=== PATIENT | female | born 1965 | race Caucasian/White ===

== ENCOUNTER 2023-08-14 11:16 | Emergency (ER) | payer MEDICARE, MEDICAID, SELFPAY ==
[2023-08-14 11:17] VITALS: BP 140/112; PULSE 122; RESP 18; TEMP 35.9; O2SAT 96; BMI 34.1
--- NOTE | 2023-08-14 11:24 | EDS_ITS ---
<Statement entered by Vivienne Edwards MD - 08/14/23 16:48> I have personally performed a face to face assessment of the patient and have reviewed the GORGE Note. Patient presents secondary to right index finger laceration. She was washing a coffee mug when it broke and patient has a laceration on the base of her right index finger measuring approximate 5 cm in length. She is neurovascularly intact. She is right-hand dominant. Patient sitting upright in bed no acute distress. Right upper extremity examination reveals a laceration on the base of the right index finger. Good strength and sensation distally. Normal cap refill. Wound was repaired with 9 simple interval sutures. Please see PA note for details. Wound care discussed. Patient to follow-up for suture removal. Return instructions provided. HPI History of Present Illness Chief Complaint: Laceration Narrative Narrative: 57-year-old female presents with a laceration to her right index finger. She was washing a glass coffee cup when it broke into large pieces and cut her finger. Bleeding is controlled with gauze. She denies weakness numbness or tingling in the extremity. She is right-hand dominant. Last tetanus unknown. No blood thinners. [facility] Home Medications ?Medication ?Instructions ?Recorded ?Last Taken ?Type atorvastatin 10 mg tablet 10 mg PO DAILY 05/25/15 Unknown History duloxetine 60 mg capsule,delayed 60 mg PO DAILY 05/25/15 Unknown History release estradiol 1 mg tablet 1 mg PO DAILY 05/25/15 Unknown History furosemide 80 mg tablet 80 mg PO DAILY 05/25/15 Unknown History gabapentin 800 mg tablet 800 mg PO TIDCM 05/25/15 Unknown History levothyroxine 125 mcg tablet 250 mcg PO DAILY 05/25/15 Unknown History metformin 500 mg tablet 500 mg PO TIDCM 05/25/15 Unknown History oxycodone-acetaminophen 5 mg-325 1 - 2 tab PO Q6H PRN PRN Pain #12 05/25/15 Unknown Rx mg tablet tabs pregabalin 150 mg capsule (Lyrica) 150 mg PO BID 05/25/15 Unknown History spironolactone 25 mg tablet 25 mg PO DAILY 05/25/15 Unknown History verapamil 180 mg 24 hr 180 mg PO Q12 05/25/15 Unknown History capsule,extended release Ropinirole Hcl [Requip] 2 mg PO QHS 06/28/15 Unknown History albuterol sulfate 90 mcg/actuation 1 - 2 puff inhalation Q4H PRN PRN 06/28/15 Unknown History aerosol inhaler (Ventolin HFA) Shortness of breath alprazolam 0.5 mg tablet 0.5 mg PO TID PRN PRN Anxiety 06/28/15 Unknown History losartan 100 mg tablet 100 mg PO DAILY 06/28/15 Unknown History linezolid 600 mg tablet 600 mg PO Q12H ##14 07/02/15 Unknown Rx levofloxacin 500 mg tablet 500 mg PO DAILY #5 tabs 07/04/15 Unknown Rx Ropinirole Hcl [Requip] 2 mg PO 07/07/15 Unknown History duloxetine 60 mg capsule,delayed 60 mg PO DAILY 07/07/15 Unknown History release estradiol 2 mg tablet (Estrace) 1 mg PO DAILY 07/07/15 Unknown History clindamycin HCl 300 mg capsule 300 mg PO Q6H ##40 06/20/16 Unknown Rx (Cleocin HCl) Allergy/AdvReac Type Severity Reaction Status Date / Time sulfamethoxazole (From Allergy Itching Verified 08/14/23 11:19 Bactrim) trimethoprim (From Bactrim) Allergy Itching Verified 08/14/23 11:19 Social History Smoking Status: Former smoker ROS ROS ED ROS Narrative Neuro: Negative for motor/sensory dysfunction. Skin: Positive for laceration. Musc: Negative for joint pain. EXAM Physical Exam Narrative Exam Narrative: CONST: Patient sitting in no acute distress. EYES: Normal inspection. EXTREMITIES: 5 cm linear laceration right hand over the dorsal index MCP joint that wraps around the finger to the palmar aspect. Slow active bleeding. No evidence of tendon injury. Full range of motion of right wrist MCP PIP and DIP joints. Normal motor and sensory function in median radial and ulnar distributions, 2+ radial pulse and brisk cap refill. NEURO: Alert and answering questions appropriately. PSYCH: Normal affect. Const Vital Signs: 08/14/23 11:17 08/14/23 12:13 Temperature 96.6 F L 98 F Temperature Source Temporal Pulse Rate 122 H 85 Respiratory Rate 18 18 Blood Pressure 140/112 H 148/102 H Blood Pressure Mean 121 117 Pulse Ox 96 98 Oxygen Delivery Method Room Air PROC Procedures Lacerations right index finger: Length: 5 cm Depth: Skin Shape: Linear Prep: Sterile Conditions and Shure-Clens Laceration repair: Irrigated, Lidocaine and Wound explored Irrigated (ml): 100 Number of Sutures/Johnathan: 9 Suture Information: Ethilon and 5-0 MDM MDM MDM Narrative Medical decision making narrative: Patient has a laceration of her right index finger over the MCP area. She has full range of motion and is neurovascularly intact. She was cut by a large piece of glass and there is concern for foreign body and no bony tenderness and no need for x-rays. There is no evidence of tendon injury. Wound was repaired with 9 simple interrupted sutures. Patient given wound care instructions and discharged in stable condition. Discharge Plan Triage Chief Complaint: Laceration ED Midlevel Provider: Ludy Stone ED Provider: Vivienne Edwards Dx/Rx/DC Orders Clinical Impression: Laceration of right hand Instructions: ED Laceration Extremity Prescriptions: No Action metformin 500 MG tablet 500 mg PO TIDCM atorvastatin 10 MG tablet 10 mg PO DAILY spironolactone 25 MG tablet 25 mg PO DAILY verapamil 180 MG capsule 180 mg PO Q12 estradiol 1 MG tablet 1 mg PO DAILY gabapentin 800 MG tablet 800 mg PO TIDCM furosemide 80 MG tablet 80 mg PO DAILY levothyroxine 125 MCG tablet 250 mcg PO DAILY duloxetine 60 MG capsule 60 mg PO DAILY pregabalin [Lyrica] 150 MG capsule 150 mg PO BID oxycodone-acetaminophen 1 TABLET tablet 1 - 2 tab PO Q6H PRN PRN (Reason: Pain) Qty: 12 0RF alprazolam 0.5 MG tablet 0.5 mg PO TID PRN PRN (Reason: Anxiety) albuterol sulfate [Ventolin HFA] 1 INHALER inhaler 1 - 2 puff inhalation Q4H PRN PRN (Reason: Shortness of breath) Ropinirole Hcl [Requip] 2 MG tablet 2 mg PO QHS losartan 100 MG tablet 100 mg PO DAILY linezolid 600 MG tablet 600 mg PO Q12H Qty: 14 0RF estradiol [Estrace] 2 MG tablet 1 mg PO DAILY duloxetine 60 MG capsule 60 mg PO DAILY Ropinirole Hcl [Requip] 2 MG tablet 2 mg PO clindamycin HCl [Cleocin HCl] 300 MG capsule 300 mg PO Q6H Qty: 40 0RF levofloxacin 500 MG tablet 500 mg PO DAILY Qty: 5 0RF Primary Care Provider: Aleksandar Soto Referrals: Aleksandar Soto MD [Primary Care Provider] - Activity Restrictions/Additional Instructions: Gently clean with soap and water. Return to have stitches removed in 7 days. If any signs of infection develop return sooner such as redness, swelling, pus or fever. Print Language: Portuguese Disposition Disposition: Home, Self Care Discharge Date/Time: 08/14/23 12:19
[2023-08-14] MEDS: Lidocaine 1% (20 ml mdv) 20 ML Vial INFILT (12:00)
[2023-08-14] MEDS: Diphth,Pertuss(Acell),Tet Vac 0.5 ML Vial IM (12:01)
[2023-08-14 12:13] VITALS: BP 148/102; PULSE 85; RESP 18; TEMP 36.6; O2SAT 98
== END 2023-08-14 12:19 | disposition home or self-care (01) ==
PROVIDERS: Emergency Provider Emergency Medicine; PCP Internal Medicine; Visit Provider Emergency Medicine
DX: S61.210A Laceration without foreign body of right index finger without damage to nail, initial encounter (principal); Z87.891 Personal history of nicotine dependence; W25.XXXA Contact with sharp glass, initial encounter; Y93.G1 Activity, food preparation and clean up; S61.411A Laceration without foreign body of right hand, initial encounter
CPT/HCPCS: 12002; 90471; 90715; 99283

== ENCOUNTER 2023-11-29 09:19 | Emergency (ER) | payer MEDICARE, MEDICAID, SELFPAY ==
[2023-11-29 09:20] VITALS: BP 157/101; PULSE 60; RESP 16; TEMP 36; O2SAT 100; BMI 34.0
--- NOTE | 2023-11-29 09:31 | ED.RN ---
PT HAD A FALL ABOUT 3 WEEKS AGO. SHE HAS NOT HAD ANY ISSUES UNTIL THAT PAST WEEK. SHE DOES NOT FEEL THEY ARE RELATED. HER PAIN IS DESCRIBED PAIN ON THE LEFT SIDE LOWER BACK/HIP AREA. SHE GETS SHOOTING PAIN DOWN THE BACK OF HER LEG. ONLY LEFT SIDE INVOLVED WITH PAIN.
--- NOTE | 2023-11-29 09:44 | EDS_ITS ---
HPI History of Present Illness Chief Complaint: Back Informant: patient Onset/Context/Timing Onset: Days Context: Gradual Onset Timing: Continuous Quality: Sharp Location: Buttock and Left Leg Current Severity: Moderate Maximum Severity: Moderate Worsened by: improves with Movement Relieved by: Remaining Still Associated Symptoms Associated Symptoms: Radiation to Left Leg; Negative for Fever, Abdominal Pain, Dysuria, Unable to Ambulate, Unable to Transfer, Urinary Retention, Urinary Incontinence, Constipation or Fecal Incontinence Narrative Narrative: 58-year-old diabetic female history of hypertension also. Complaining atraumatic left buttock pain radiating down her left leg. This has been going on for approximately the last week or so. She had a trip and fall about a month ago but said she was not having pain about a week ago. Denies any weakness or numbness. No prior history of back problems or back surgery. Prior similar symptoms: No Recent Illness/Hospitalization: No [facility] Medical History Diabetes Home Medications ?Medication ?Instructions ?Recorded ?Last Taken ?Type atorvastatin 10 mg tablet 10 mg PO DAILY 05/25/15 Unknown History duloxetine 60 mg capsule,delayed 60 mg PO DAILY 05/25/15 Unknown History release estradiol 1 mg tablet 1 mg PO DAILY 05/25/15 Unknown History furosemide 80 mg tablet 80 mg PO DAILY 05/25/15 Unknown History gabapentin 800 mg tablet 800 mg PO TIDCM 05/25/15 Unknown History levothyroxine 125 mcg tablet 250 mcg PO DAILY 05/25/15 Unknown History metformin 500 mg tablet 500 mg PO TIDCM 05/25/15 Unknown History oxycodone-acetaminophen 5 mg-325 1 - 2 tab PO Q6H PRN PRN Pain #12 05/25/15 Unknown Rx mg tablet tabs pregabalin 150 mg capsule (Lyrica) 150 mg PO BID 05/25/15 Unknown History spironolactone 25 mg tablet 25 mg PO DAILY 05/25/15 Unknown History verapamil 180 mg 24 hr 180 mg PO Q12 05/25/15 Unknown History capsule,extended release Ropinirole Hcl [Requip] 2 mg PO QHS 06/28/15 Unknown History albuterol sulfate 90 mcg/actuation 1 - 2 puff inhalation Q4H PRN PRN 06/28/15 Unknown History aerosol inhaler (Ventolin HFA) Shortness of breath alprazolam 0.5 mg tablet 0.5 mg PO TID PRN PRN Anxiety 06/28/15 Unknown History losartan 100 mg tablet 100 mg PO DAILY 06/28/15 Unknown History linezolid 600 mg tablet 600 mg PO Q12H ##14 07/02/15 Unknown Rx levofloxacin 500 mg tablet 500 mg PO DAILY #5 tabs 07/04/15 Unknown Rx Ropinirole Hcl [Requip] 2 mg PO 07/07/15 Unknown History duloxetine 60 mg capsule,delayed 60 mg PO DAILY 07/07/15 Unknown History release estradiol 2 mg tablet (Estrace) 1 mg PO DAILY 07/07/15 Unknown History clindamycin HCl 300 mg capsule 300 mg PO Q6H ##40 06/20/16 Unknown Rx (Cleocin HCl) prednisone 20 mg tablet 40 mg (2 x 20 mg) PO DAILY 11/29/23 Unknown Rx sciatica 7 days #14 tabs Allergy/AdvReac Type Severity Reaction Status Date / Time sulfamethoxazole (From Allergy Itching Verified 11/29/23 09:32 Bactrim) trimethoprim (From Bactrim) Allergy Itching Verified 11/29/23 09:32 Social History Smoking Status: Former smoker ROS ROS ED Constitutional Constitutional ED: Denies chills or fever(s) Eyes Eyes: Denies blurry vision ENT ENT ED: Denies ear pain Cardiovascular Cardiovascular: Denies chest pain Respiratory/Chest Respiratory/Chest: Denies dyspnea Gastrointestinal Gastrointestinal: Denies abdominal pain Genitourinary Genitourinary ED: Denies dysuria or hematuria Musculoskeletal Musculoskeletal: Denies arthralgias Integumentary Denies abscess Neurologic Neurologic: Denies headache(s) Psychiatric Psychiatric: Denies anxiety Endocrine Endocrinology: Denies cold intolerance Hematologic/Lymphatic Hematologic/Lymphatic: Denies easy bleeding Allergic/Immunologic Allergic/Immunologic ED: Denies mouth swelling EXAM Physical Exam Narrative Exam Narrative: 58-year-old female sitting upright in bed. Vital signs are stable. Afebrile. No distress. H EENT exam unremarkable. Lungs clear. Heart regular rate and rhythm rate about 60 no murmur. Abdomen soft nontender. Moving all 4 extremities. Neurovascularly intact. 5 out of 5 marriage counselor strength. Dorsi plant arflexion intact. Positive straight leg raise on the left but has full range of motion. Normal dorsi plantarflexion bilaterally. 5 out of 5 strength. Normal sensation. No cauda equina. Back and lumbar spine nontender. No signs of trauma or bruising. No redness or warmth. Left SI joint tender to palpation. Consistent with acute left sciatica. Neurologically she is awake and alert no focal motor or sensory deficits. Const Vital Signs: 11/29/23 09:20 Temperature 96.8 F L Temperature Source Temporal Pulse Rate 60 Respiratory Rate 16 Blood Pressure 157/101 H Blood Pressure Mean 119 Pulse Ox 100 Oxygen Delivery Method Room Air Positive well nourished and well developed; Negative for cachectic, contractures or unkempt General Appearance ED: well developed and NAD; Negative for unkempt, cachectic, contractures or pallor Nutritional Appearance: Negative for cachectic HEENT Reports moist mucous membranes Negative for trauma or tenderness Eyes PERRL and EOMs intact bilaterally General Eye ED: Negative for pale conjunctiva, scleral icterus or other Neck no lymphadenopathy, supple and no JVD General: Negative for tenderness Thyroid: Negative for other Chest Wall Chest: Negative for other Resp clear to auscultation bilaterally Auscultation: Negative for rales, rhonchi, wheezes or diminished lung sounds Cardio regular rate, regular rhythm, S1 normal heart sound, S2 normal heart sound and no murmurs Palpation: Negative for palpable S3 Rate: Negative for bradycardia or tachycardic Rhythm: Negative for abnormal rhythm Bruits: Negative for other GI normal to inspection, nondistended, normoactive bowel sounds, soft to palpation, non-tender, non-distended and no masses Palpation: Negative for tender, guarding, pulsatile mass or rebound tenderness present Back/Spine normal to inspection and no thoracic nor lumbar tenderness General Back: Negative for CVA tenderness Cervical Spine: Negative for cervical spine tenderness Thoracic Spine / Upper Back: Negative for paraspinal muscle tenderness Extremity normal to inspection and no clubbing, cyanosis or edema General Extremety ED: Negative for edema or tenderness General Extremity: Negative for edema Neuro oriented x3 and no sensory deficits noted Sensorium / Orientation: alert; Negative for confused, lethargic or stuporous Motor Exam: strength 5/5 throughout Psych mental status grossly normal Appearance: Negative for unkempt Attitude: No agitated Mood & Affect: Negative for depressed, sad or tearful Skin no rashes or lesions noted and no wounds General Skin Exam: Negative for jaundice or pallor Lesions: No lesion noted Rashes: No rashes noted Trauma: Negative for abrasion or puncture MDM MDM MDM Narrative Medical decision making narrative: 58-year-old female left sciatica. We discussed treatment options. She has been using ibuprofen with only limited improvement. She be placed on prednisone 40 minutes a day for 1 week. Ice to the area. Follow-up if not improving. She was instructed to watch her blood sugars which have been running well around the 100. Discharge Plan Triage Chief Complaint: Back Other Complaint: Lower Extremity Injury ED Provider: Bashir Sahni Dx/Rx/DC Orders Clinical Impression: Sciatica, History of diabetes mellitus Instructions: ED Sciatica Prescriptions: New prednisone 20 mg tablet 40 mg PO DAILY 7 Days Qty: 14 0RF No Action metformin 500 MG tablet 500 mg PO TIDCM atorvastatin 10 MG tablet 10 mg PO DAILY spironolactone 25 MG tablet 25 mg PO DAILY verapamil 180 MG capsule 180 mg PO Q12 estradiol 1 MG tablet 1 mg PO DAILY gabapentin 800 MG tablet 800 mg PO TIDCM furosemide 80 MG tablet 80 mg PO DAILY levothyroxine 125 MCG tablet 250 mcg PO DAILY duloxetine 60 MG capsule 60 mg PO DAILY pregabalin [Lyrica] 150 MG capsule 150 mg PO BID oxycodone-acetaminophen 1 TABLET tablet 1 - 2 tab PO Q6H PRN PRN (Reason: Pain) Qty: 12 0RF alprazolam 0.5 MG tablet 0.5 mg PO TID PRN PRN (Reason: Anxiety) albuterol sulfate [Ventolin HFA] 1 INHALER inhaler 1 - 2 puff inhalation Q4H PRN PRN (Reason: Shortness of breath) Ropinirole Hcl [Requip] 2 MG tablet 2 mg PO QHS losartan 100 MG tablet 100 mg PO DAILY linezolid 600 MG tablet 600 mg PO Q12H Qty: 14 0RF estradiol [Estrace] 2 MG tablet 1 mg PO DAILY duloxetine 60 MG capsule 60 mg PO DAILY Ropinirole Hcl [Requip] 2 MG tablet 2 mg PO clindamycin HCl [Cleocin HCl] 300 MG capsule 300 mg PO Q6H Qty: 40 0RF levofloxacin 500 MG tablet 500 mg PO DAILY Qty: 5 0RF Primary Care Provider: Aleksandar Soto Referrals: Aleksandar Soto MD [Primary Care Provider] - 1 Week if not improving Activity Restrictions/Additional Instructions: Clinically treated as left-sided sciatica. Prednisone daily. Watch as may increase your blood sugars. Follow-up with your doctor if not improving or return if a lot worse. May use your home pain medications as needed. Ice to the affected area. Print Language: St Helenian Disposition Disposition: Home, Self Care
[2023-11-29] MEDS: predniSONE 20 MG Tablet 60 MG PO (09:45)
[2023-11-29 09:47] VITALS: BP 160/95; PULSE 74; RESP 16; TEMP 36.4; O2SAT 97
== END 2023-11-29 09:52 | disposition home or self-care (01) ==
LOC: ED 09:45
PROVIDERS: Emergency Provider Emergency Medicine; PCP Internal Medicine; Visit Provider Emergency Medicine
DX: M54.32 Sciatica, left side (principal); E11.9 Type 2 diabetes mellitus without complications; I10 Essential (primary) hypertension; Z87.891 Personal history of nicotine dependence; Z79.84 Long term (current) use of oral hypoglycemic drugs
CPT/HCPCS: 99283

== ENCOUNTER 2024-05-05 08:28 | Emergency (ER) | payer MEDICARE, SELFPAY ==
[2024-05-05 08:29] VITALS: BP 134/90; PULSE 71; RESP 16; TEMP 36.4; O2SAT 99
--- NOTE | 2024-05-05 08:34 | ED.VIS.LOWEX ---
HPI History of Present Illness HPI Narrative: Patient presents with left knee injury that occurred yesterday. Patient states she fell and landed directly on her left knee. Patient states her knee was hyperflexed when she fell. Patient states her pain is worse with any weightbearing or movement. Patient denies any paresthesias or weakness. Patient states she has had total knee replacement of both knees. Patient also noted some swelling over the lateral aspect of her left lower leg. Patient denies any paresthesias or weakness. Chief Complaint: Lower Extremity Injury Informant: patient Occured/Mechanism Mechanism/Context: Yes fall Onset/Context/Timing Onset: Yesterday Context: Sudden Onset Timing: Continuous Quality of Pain: Dull Location: Left knee Worsened by: Weightbearing, movement Relieved by: Nothing Associated Symptoms Associated Symptoms: Negative for Parasthesia, Weakness or Loss of Funtion [facility] Medical History (Updated 05/05/24 @ 11:[address] Rolando Olivares, DO) Diabetes Home Medications ?Medication ?Instructions ?Recorded ?Last Taken ?Type atorvastatin 10 mg tablet 10 mg PO DAILY 05/25/15 Unknown History duloxetine 60 mg capsule,delayed 60 mg PO DAILY 05/25/15 Unknown History release estradiol 1 mg tablet 1 mg PO DAILY 05/25/15 Unknown History furosemide 80 mg tablet 80 mg PO DAILY 05/25/15 Unknown History gabapentin 800 mg tablet 800 mg PO TIDCM 05/25/15 Unknown History levothyroxine 125 mcg tablet 250 mcg PO DAILY 05/25/15 Unknown History metformin 500 mg tablet 500 mg PO TIDCM 05/25/15 Unknown History oxycodone-acetaminophen 5 mg-325 1 - 2 tab PO Q6H PRN PRN Pain #12 05/25/15 Unknown Rx mg tablet tabs pregabalin 150 mg capsule (Lyrica) 150 mg PO BID 05/25/15 Unknown History spironolactone 25 mg tablet 25 mg PO DAILY 05/25/15 Unknown History verapamil 180 mg 24 hr 180 mg PO Q12 05/25/15 Unknown History capsule,extended release Ropinirole Hcl [Requip] 2 mg PO QHS 06/28/15 Unknown History albuterol sulfate 90 mcg/actuation 1 - 2 puff inhalation Q4H PRN PRN 06/28/15 Unknown History aerosol inhaler (Ventolin HFA) Shortness of breath alprazolam 0.5 mg tablet 0.5 mg PO TID PRN PRN Anxiety 06/28/15 Unknown History losartan 100 mg tablet 100 mg PO DAILY 06/28/15 Unknown History linezolid 600 mg tablet 600 mg PO Q12H ##14 07/02/15 Unknown Rx levofloxacin 500 mg tablet 500 mg PO DAILY #5 tabs 07/04/15 Unknown Rx Ropinirole Hcl [Requip] 2 mg PO 07/07/15 Unknown History duloxetine 60 mg capsule,delayed 60 mg PO DAILY 07/07/15 Unknown History release estradiol 2 mg tablet (Estrace) 1 mg PO DAILY 07/07/15 Unknown History clindamycin HCl 300 mg capsule 300 mg PO Q6H ##40 06/20/16 Unknown Rx (Cleocin HCl) prednisone 20 mg tablet 40 mg (2 x 20 mg) PO DAILY 11/29/23 Unknown Rx sciatica 7 days #14 tabs Allergy/AdvReac Type Severity Reaction Status Date / Time Penicillins (PCN) Allergy Severe Angioedema Verified 05/05/24 08:28 sulfamethoxazole (From Allergy Itching Verified 05/05/24 08:28 Bactrim) trimethoprim (From Bactrim) Allergy Itching Verified 05/05/24 08:28 Surgical History (Updated 05/05/24 @ 09:[address] Rolando Olivares DO) Hx of total shoulder replacement History of total right knee replacement (TKR) History of total left knee replacement (TKR) Social History Smoking Status: Former smoker ROS ROS ED Constitutional Constitutional ED: Denies chills or fever(s) Eyes Eyes: Denies blurry vision or change in vision ENT ENT ED: Denies rhinorrhea or sore throat Cardiovascular Cardiovascular: Denies chest pain or palpitations Respiratory/Chest Respiratory/Chest: Denies cough or dyspnea Gastrointestinal Gastrointestinal: Denies nausea or vomiting Genitourinary Genitourinary ED: Denies dysuria or hematuria Musculoskeletal Musculoskeletal: Denies back pain or neck pain Integumentary Denies abscess or rash Neurologic Neurologic: Denies headache(s) or weakness Allergic/Immunologic Allergic/Immunologic ED: Denies mouth swelling or urticaria EXAM Physical Exam Const Vital Signs: 05/05/24 08:29 Temperature 97.6 F L Temperature Source Temporal Pulse Rate 71 Respiratory Rate 16 Blood Pressure 134/90 H Blood Pressure Mean 104 Pulse Ox 99 Oxygen Delivery Method Room Air Positive well nourished and well developed General Appearance ED: well developed and NAD Neck full ROM and supple Extremity Extremity Narrative: There is tenderness and edema over the left knee. There is no obvious deformity noted. Range of motion was limited in all motions of the left knee secondary to pain. Strength is 5/5 bilaterally in the lower extremities. There are no sensory deficits noted. Pedal pulses are bilateral. There is some mild tenderness over the lateral aspect of the left lower calf. There is no erythema or warmth noted. There is no pain with plantarflexion and dorsiflexion of the ankle. Neuro oriented x3, CN's II-XII intact bilaterally, moves all extremities and no sensory deficits noted Sensorium / Orientation: alert Motor Exam: strength 5/5 throughout Psych mental status grossly normal MDM MDM MDM Narrative Medical decision making narrative: Differential diagnosis includes knee fracture, contusion, and DVT. X-rays of the left knee will be obtained to assess for fracture. Venous duplex of the left lower extremity will be obtained to assess for DVT. Radiography Diagnostic Testing: Clinical Impression(s) from Imaging Studies Knee X-Ray 05/05/24 09:25 IMPRESSION: Negative for acute fracture or dislocation. Intact left total knee prosthesis. Small joint effusion. Mild heterotopic ossification along the inferior and lateral patella. Reading Location: [facility] X-rays of the left knee were obtained. There are 4 views. On my independent interpretation, there is no acute fracture or dislocation noted. There is a small joint effusion. Radiologist also interpreted the x-rays and agrees. Venous duplex of the left lower extremity was obtained. There is no evidence of DVT. Treatment and Re-Evaluation Narrative: Patient was advised of her findings. Patient was instructed to ice and elevate her left knee. Patient was instructed to take Tylenol or ibuprofen as needed for pain. Patient was instructed to follow-up with her primary care physician in 5 to 7 days. Patient understood and was agreeable with the plan. All questions were answered. Discharge Plan Triage Chief Complaint: Lower Extremity Injury ED Provider: Rolando Olivares Dx/Rx/DC Orders Clinical Impression: Left knee sprain, Fall Instructions: ED Knee Pain of Uncertain Cause, ED Knee Sprain Prescriptions: No Action metformin 500 MG tablet 500 mg PO TIDCM atorvastatin 10 MG tablet 10 mg PO DAILY spironolactone 25 MG tablet 25 mg PO DAILY verapamil 180 MG capsule 180 mg PO Q12 estradiol 1 MG tablet 1 mg PO DAILY gabapentin 800 MG tablet 800 mg PO TIDCM furosemide 80 MG tablet 80 mg PO DAILY levothyroxine 125 MCG tablet 250 mcg PO DAILY duloxetine 60 MG capsule 60 mg PO DAILY pregabalin [Lyrica] 150 MG capsule 150 mg PO BID oxycodone-acetaminophen 1 TABLET tablet 1 - 2 tab PO Q6H PRN PRN (Reason: Pain) Qty: 12 0RF alprazolam 0.5 MG tablet 0.5 mg PO TID PRN PRN (Reason: Anxiety) albuterol sulfate [Ventolin HFA] 1 INHALER inhaler 1 - 2 puff inhalation Q4H PRN PRN (Reason: Shortness of breath) Ropinirole Hcl [Requip] 2 MG tablet 2 mg PO QHS losartan 100 MG tablet 100 mg PO DAILY linezolid 600 MG tablet 600 mg PO Q12H Qty: 14 0RF estradiol [Estrace] 2 MG tablet 1 mg PO DAILY duloxetine 60 MG capsule 60 mg PO DAILY Ropinirole Hcl [Requip] 2 MG tablet 2 mg PO clindamycin HCl [Cleocin HCl] 300 MG capsule 300 mg PO Q6H Qty: 40 0RF prednisone 20 mg tablet 40 mg PO DAILY 7 Days Qty: 14 0RF levofloxacin 500 MG tablet 500 mg PO DAILY Qty: 5 0RF Primary Care Provider: Aleksandar Soto Referrals: Aleksandar Soto MD [Primary Care Provider] - 5-7 Days Print Language: Slovenian Disposition Disposition: Home, Self Care
[2024-05-05 08:39] VITALS: BMI 35.2
--- NOTE | 2024-05-05 09:12 | VDLE_ITS ---
Reason For Study Reason For Study: LLE Pain RIGHT LEFT CFV is compressible, spontaneous, phasic, competent GSV is normal. and demonstrates normal augmentation. CFV is compressible, spontaneous, phasic, competent, Procedure and demonstrates normal augmentation. This is a venous duplex using B-mode, color flow and FV is compressible, spontaneous, phasic, competent spectral Doppler. and demonstrates normal augmentation. Exam performed portable in ED. POP V is compressible, spontaneous, phasic, competent The exam was diagnostic. and demonstrates normal augmentation. A preliminary report was called and/or faxed to [facility] Trunk is compressible. Elise. PTV is compressible. LT PerV is compressible. VL/Venous Duplex US, Unilateral Interpretation Summary Deep veins of the left lower extremity are patent and compressible segmentally. There is no evidence of left lower extremity deep vein thrombosis. Valvular competence appears intact within the p roximal deep venous system on the left . The left great saphenous vein appears patent and compressible segmentally. The right common femoral vein is patent and compressible . Ordering Physician: Rolando Olivares Referring Physician: Aleksandar Soto M.D. Performed By: Hammad Santana RVT
--- NOTE | 2024-05-05 09:25 | RAD_ITS ---
PROCEDURE: Left knee radiographs REASON FOR EXAM: INJURY/PAIN TECHNIQUE: 4 view(s) of the left knee COMPARISON: None. FINDINGS: See impression RAD/Knee 4 or More Views IMPRESSION: Negative for acute fracture or dislocation. Intact left total knee prosthesis. Small joint effusion. Mild heterotopic ossification along the inferior and lateral patella. Reading Location: [facility]
[2024-05-05 11:53] VITALS: BP 139/88; PULSE 81; RESP 18; TEMP 36.6; O2SAT 94
== END 2024-05-05 12:00 | disposition home or self-care (01) ==
PROVIDERS: Emergency Provider Emergency Medicine; PCP Internal Medicine; Visit Provider Emergency Medicine
DX: S83.92XA Sprain of unspecified site of left knee, initial encounter (principal); E11.9 Type 2 diabetes mellitus without complications; W19.XXXA Unspecified fall, initial encounter; Z87.891 Personal history of nicotine dependence; Z96.653 Presence of artificial knee joint, bilateral; Z79.84 Long term (current) use of oral hypoglycemic drugs; M79.89 Other specified soft tissue disorders; Z96.619 Presence of unspecified artificial shoulder joint
CPT/HCPCS: 73564; 93971; 99282

== ENCOUNTER 2024-07-02 05:26 | Emergency (ER) | payer MEDICARE, SELFPAY ==
[2024-07-02] VITALS (7 sets, daily range): BP systolic 105–158; BP diastolic 58–119; PULSE 67–111; RESP 10–22; TEMP 37.3; O2SAT 96–100; BMI 37.3
--- NOTE | 2024-07-02 05:39 | CT_ITS ---
PROCEDURE: ABDOMEN/PELVIS W IV CONT ONLY 07/02/2024 REASON FOR EXAM: LEFT FLANK PAIN S/P KIDNEY SURGERY FOR STONE TECHNIQUE: Abdomen and pelvis CT with intravenous contrast. Coronal and Sagittal reconstruction series were provided. PATIENT PREPARATION: Per protocol ORAL CONTRAST TYPE: None. CONTRAST: 100 cc Isovue 370 IV One or more dose reduction techniques were used (e.g., Automated exposure control, adjustment of the mA and/or kV according to patient size, use of iterative reconstruction technique. RADIATION DOSE SUMMARY: CTDlvol: 23.92 mGy DLP: 1248.22 mGycm COMPARISON: None available FINDINGS: The lung bases are clear. The liver, adrenal glands, right kidney, pancreas and spleen appear within limits. Single partially calcified gallstone nondistended, noninflamed appearing gallbladder. The left double-J ureteral stent is dislodged with the proximal portion of the stent in the distal left ureter just upstream to the ureterovesical junction and the stent looping within the bladder. A punctate distal left ureteral stone is noted. There is moderate left hydroureteronephrosis with slight delay of the left renal nephrogram. The collecting system contains mildly high density material which is unclear if this is hemorrhage or purulent. Left perinephric stranding with a small amount of fluid along the lower pole which may represent forniceal rupture or possible hemorrhage. There is a left retroperitoneal collection adjacent to the psoas muscle which measures 5.1 x 9.6 x 11.4 cm and may represent possible hemorrhage. No subcutaneous soft tissue flank collection or air. Abdominal aorta appears within limits. Aortoiliac atherosclerotic calcification noted. Incidental note of a retroaortic left renal vein which appears to contain contrast. No bowel dilation or free air. Moderate to large amount of proximal colonic fecal material without wall thickening or pericolonic inflammatory change. Normal caliber appendix without secondary signs. Fecalized material within the nondilated distal small bowel can be seen with slow, delayed bowel transit. The adnexa and uterus appear within limits. Trace right pelvic free fluid. Mild anterolisthesis L4 on L5 with spondylosis, degenerative hypertrophic facet changes with apparent severe appearing trefoil central canal narrowing and bilateral foraminal narrowing, [id number]. CT/Abdomen/Pelvis W IV Cont ONLY IMPRESSION: The left double-J ureteral stent is dislodged with the proximal portion of the stent in the distal left ureter just upstream to the ureterovesical junction and the stent looping within the bladder. A punctat e distal left ureteral stone is noted. There is moderate left hydroureteronephrosis with slight delay of the left apurva l nephrogram. The collecting system contains mildly high density material which is unclear if this is hemorrhage or purulent . Left perinephric stranding with a small amount of fluid along the lower pole wh ich may represent forniceal rupture or possible hemorrhage. There is a left retroperitoneal collection adjacent to the psoas muscle which m easures 5.1 x 9.6 x 11.4 cm and may represent possible hemorrhage. Single partially calcified gallstone nondistended, noninflamed appearing gallbl adder. Findings discussed by myself by phone with Dr. Sahni at 6:55 a.m. 07/02/2024 Reading Location: [id number]
--- NOTE | 2024-07-02 05:42 | ED.VIS.GI ---
HPI HPI - GI History of Present Illness Chief Complaint: Abd Pain Informant: patient and spouse/S.O. Abdominal Pain/Flank Pain Onset: Today Context: Gradual Onset Timing: Continuous Quality: Sharp and Stabbing Location: LLQ and Left Flank Current Severity: Severe Maximum Severity: Severe Worsened by: Nothing Relieved by: Nothing Nausea/Vomiting/Emesis GI Symptom: Negative for Nausea or Vomiting Diarrhea/Melena/Hematochezia GI Symptom: Negative for Diarrhea, Melena or Hematochezia Associated Symptoms Associated Symptoms: Positive for Hematuria; Negative for Dysuria or Frequency Narrative Narrative: 58-year-old female history of A-fib on Eliquis, diabetes recently had surgery for a kidney stone in her left kidney at [facility] about 10 days ago on a Tuesday. Patient states she was doing well. She has noticed recent hematuria and started having left lower quadrant abdominal pain at 12 AM this morning. States the pain is severe. Denies any fever or dysuria. She is having some mild gross hematuria. Prior similar symptoms: No Recent Illness/Hospitalization: No PFSH PFS Medical History Diabetes Home Medications ?Medication ?Instructions ?Recorded ?Last Taken ?Type atorvastatin 10 mg tablet 10 mg PO DAILY 05/25/15 Unknown History duloxetine 60 mg capsule,delayed 60 mg PO BID 05/25/15 Unknown History release furosemide 80 mg tablet 80 mg PO DAILY 05/25/15 Unknown History gabapentin 800 mg tablet 800 mg PO TIDCM 05/25/15 Unknown History levothyroxine 125 mcg tablet 250 mcg PO DAILY 05/25/15 Unknown History metformin 500 mg tablet 500 mg PO TIDCM 05/25/15 Unknown History oxycodone-acetaminophen 5 mg-325 1 - 2 tab PO Q6H PRN PRN Pain #12 05/25/15 Unknown Rx mg tablet tabs pregabalin 150 mg capsule (Lyrica) 150 mg PO BID 05/25/15 Unknown History spironolactone 25 mg tablet 25 mg PO DAILY 05/25/15 Unknown History verapamil 180 mg 24 hr 180 mg PO Q12 05/25/15 Unknown History capsule,extended release Ropinirole Hcl [Requip] 2 mg PO QHS 06/28/15 Unknown History albuterol sulfate 90 mcg/actuation 1 - 2 puff inhalation Q4H PRN PRN 06/28/15 Unknown History aerosol inhaler (Ventolin HFA) Shortness of breath alprazolam 0.5 mg tablet 0.5 mg PO TID PRN PRN Anxiety 06/28/15 Unknown History losartan 100 mg tablet 100 mg PO DAILY 06/28/15 Unknown History linezolid 600 mg tablet 600 mg PO Q12H ##14 07/02/15 Unknown Rx levofloxacin 500 mg tablet 500 mg PO DAILY #5 tabs 07/04/15 Unknown Rx Ropinirole Hcl [Requip] 2 mg PO 07/07/15 Unknown History prednisone 20 mg tablet 40 mg (2 x 20 mg) PO DAILY 11/29/23 Unknown Rx sciatica 7 days #14 tabs Allergy/AdvReac Type Severity Reaction Status Date / Time Penicillins (PCN) Allergy Severe Angioedema Verified 07/02/24 05:32 sulfamethoxazole (From Allergy Itching Verified 07/02/24 05:32 Bactrim) trimethoprim (From Bactrim) Allergy Itching Verified 07/02/24 05:32 Surgical History Hx of total shoulder 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 Constitutional Constitutional ED: Denies chills or fever(s) ENT ENT ED: Denies ear pain Cardiovascular Cardiovascular: Denies chest pain Respiratory/Chest Respiratory/Chest: Denies cough or dyspnea Gastrointestinal Gastrointestinal: Reports abdominal pain; Denies diarrhea, nausea or vomiting Genitourinary Genitourinary ED: Reports hematuria; Denies dysuria or urinary frequency Musculoskeletal Musculoskeletal: Denies arthralgias Integumentary Denies abscess Neurologic Neurologic: Denies headache(s) Psychiatric Psychiatric: Denies anxiety Endocrine Endocrinology: Denies polydipsia Hematologic/Lymphatic Hematologic/Lymphatic: Denies easy bleeding Allergic/Immunologic Allergic/Immunologic ED: Denies mouth swelling, tongue swelling or urticaria EXAM Physical Exam Narrative Exam Narrative: 58-year-old female complaining left flank pain. Vital signs are stable blood pressure elevated 150/119 most likely secondary to pain. Otherwise no acute distress. at bedside. H EENT exam pupils round react to light. Mytrex membranes. Neck nontender. Lungs clear to auscultation bilaterally. Heart regular rhythm no murmur. Abdomen is soft, nontender, nondistended normal bowel sounds without peritoneal signs. No hernia or mass. No reproducible pain. She points her left lower quadrant but there is no reproducible pain. No hernia or mass. No distention. Back she has a small 1 inch incision on her back. On the left flank. Some mild bruising around it. No redness. No warmth. No discharge. No tenderness. Moving all 4 extremities. Nontender no edema. Neurologically she is awake alert. Answer questions following commands. Const Vital Signs: 07/02/24 05:27 07/02/24 05:29 07/02/24 07:27 Temperature 99.1 F 99.1 F Temperature Source Oral Oral Pulse Rate 95 111 H 77 Respiratory Rate 17 22 H 12 Blood Pressure 158/119 H 158/119 H 121/77 H Blood Pressure Mean 132 132 91 Pulse Ox 100 99 99 Oxygen Delivery Method Room Air Room Air Room Air Positive well nourished and well developed; Negative for cachectic, contractures or unkempt General Appearance ED: well developed and NAD; Negative for unkempt, cachectic, contractures or pallor Nutritional Appearance: Negative for cachectic HEENT Reports moist mucous membranes normocephalic and atraumatic Eyes PERRL and EOMs intact bilaterally General Eye ED: Negative for pale conjunctiva or scleral icterus Neck no lymphadenopathy, supple and no JVD Resp normal respiratory effort and clear to auscultation bilaterally Cardio regular rate, regular rhythm, S1 normal heart sound, S2 normal heart sound and no murmurs GI non-tender, non-distended and no masses Inspection: Negative for abdominal distention Auscultation: normoactive bowel sounds Palpation: Negative for tender, guarding, hernia, mass, pulsatile mass or rebound tenderness present Back/Spine no CVA tenderness Back/Spine Narrative: Left flank 1 and surgical incision. Mild bruising. No redness or warmth or discharge. General Back: Negative for CVA tenderness Cervical Spine: Negative for cervical spine tenderness Thoracic Spine / Upper Back: Negative for thoracic spinal tenderness Lumbar Spine / Lower Back: Negative for lumbar spinal tenderness Extremity full ROM General Extremety ED: Negative for edema or tenderness General Extremity: Negative for edema Neuro CN's II-XII intact bilaterally and moves all extremities Sensorium / Orientation: alert, oriented to person, oriented to place and oriented to time; Negative for orientation impaired, confused, lethargic or stuporous Motor Exam: strength 5/5 throughout Psych mental status grossly normal and thought process normal Appearance: Negative for unkempt Attitude: No agitated Mood & Affect: Negative for depressed, anxious or tearful Skin no wounds General Skin Exam: Negative for jaundice or pallor Lesions: no lesions Rashes: no rashes Trauma: Negative for abrasion Nails: Negative for discolored MDM MDM MDM Narrative Medical decision making narrative: 58-year-old female status post kidney stone resection done open procedure to her left flank at the [facility] in [place]. Recurrent pain and hematuria. CAT scan being obtained. Fentanyl for pain Zofran for nausea. Screening labs and UA. Differential would include a recurrent stone. UTI, ... Repeat exam patient doing well at 6:02 AM. Pain much better after IV fentanyl. Awaiting CAT scan labs. I spoke to a urologist in the [place] covering for the patient's urologist. He felt that it was in her best interest to be transferred to [facility]. We have them on page awaiting callback. Patient has been checked out to the a.m. physician to handle the transfer. Currently she is resting comfortably. Has not required any additional pain medication. She knows the current plan. History & Record Review Discussion w/independent historian: Patient and Family Additional record(s) reviewed:: No prior records Lab Data Attestation: I reviewed the patient's lab results. Lab results narrative: CBC shows a white count of 16.1. H&H 9.6 and 29. Platelets 345. Chemistry shows sodium 134. Gap 13. Normal BUN of 15 creatinine 1. Glucose 157. CAT scan of the abdomen and pelvis shows the left ureter stent has migrated out of place and the vast majority of its in the bladder. The ureter is dilated. And there is a fluid collection outside the system consistent with bleeding. Urinalysis showed 250 occult blood. No nitrates. Greater 100 red cells. No white cells nor bacteria. Labs: Laboratory Results - last 24 hr 07/02/24 07/02/24 05:35 07:06 WBC 16.1 H RBC 2.88 L Hgb 9.6 L Hct 29.0 L MCV 100.7 H MCH 33.3 H MCHC 33.1 RDW Std Deviation 49.8 H RDW Coeff of Frantz 13.4 Plt Count 345 MPV 9.5 Immature Gran % (Auto) 0.400 Neut % (Auto) 71.9 H Lymph % (Auto) 18.5 L Alfalfa % (Auto) 8.3 Eos % (Auto) 0.4 Baso % (Auto) 0.5 Absolute Neuts (auto) 11.5 H Absolute Lymphs (auto) 2.97 Nucleated RBC % 0 Sodium 134 Potassium 3.5 Chloride 99 Carbon Dioxide 22.7 Anion Gap 13 BUN 15 Creatinine 1.03 Estim Creat Clear Calc 73.50 Est GFR (MDRD) Non-Af 62 BUN/Creatinine Ratio 14.6 Glucose 157 H Calcium 9.1 Urine Color SEE COMMENT BELOW Urine Clarity Clear Urine pH 7.0 Ur Specific [place] 1.005 Urine Protein 100 H Urine Glucose (UA) Normal Urine Ketones Negative Urine Occult Blood 250 H Urine Nitrite Negative Urine Bilirubin Negative Urine Urobilinogen Normal Ur Leukocyte Esterase 100 H Urine RBC > 100 SEEN Urine WBC 0-5 SEEN Ur Squamous Epith Cells 0-5 SEEN Urine Bacteria 0 SEEN Urine Mucus 0 SEEN Radiography Diagnostic Testing: Clinical Impression(s) from Imaging Studies Abdomen/Pelvis CT 07/02/24 05:39 IMPRESSION: The left double-J ureteral stent is dislodged with the proximal portion of the stent in the distal left ureter just upstream to the ureterovesical junction and the stent looping within the bladder. A punctate distal left ureteral stone is noted. There is moderate left hydroureteronephrosis with slight delay of the left renal nephrogram. The collecting system contains mildly high density material which is unclear if this is hemorrhage or purulent. Left perinephric stranding with a small amount of fluid along the lower pole which may represent forniceal rupture or possible hemorrhage. There is a left retroperitoneal collection adjacent to the psoas muscle which measures 5.1 x 9.6 x 11.4 cm and may represent possible hemorrhage. Single partially calcified gallstone nondistended, noninflamed appearing gallbladder. Findings discussed by myself by phone with Dr. Sahni at 6:55 a.m. 07/02/2024 Reading Location: [facility] Discharge Plan Triage Chief Complaint: Abd Pain ED Provider: Bashir Sahni Dx/Rx/DC Orders Clinical Impression: Abdominal pain, left lower quadrant, Post-op bleeding, Perinephric hematoma, Chronic anticoagulation, History of atrial fibrillation, History of diabetes mellitus Prescriptions: No Action metformin 500 MG tablet 500 mg PO TIDCM atorvastatin 10 MG tablet 10 mg PO DAILY spironolactone 25 MG tablet 25 mg PO DAILY verapamil 180 MG capsule 180 mg PO Q12 gabapentin 800 MG tablet 800 mg PO TIDCM furosemide 80 MG tablet 80 mg PO DAILY levothyroxine 125 MCG tablet 250 mcg PO DAILY duloxetine 60 MG capsule 60 mg PO BID pregabalin [Lyrica] 150 MG capsule 150 mg PO BID oxycodone-acetaminophen 1 TABLET tablet 1 - 2 tab PO Q6H PRN PRN (Reason: Pain) Qty: 12 0RF alprazolam 0.5 MG tablet 0.5 mg PO TID PRN PRN (Reason: Anxiety) albuterol sulfate [Ventolin HFA] 1 INHALER inhaler 1 - 2 puff inhalation Q4H PRN PRN (Reason: Shortness of breath) Ropinirole Hcl [Requip] 2 MG tablet 2 mg PO QHS losartan 100 MG tablet 100 mg PO DAILY linezolid 600 MG tablet 600 mg PO Q12H Qty: 14 0RF Ropinirole Hcl [Requip] 2 MG tablet 2 mg PO prednisone 20 mg tablet 40 mg PO DAILY 7 Days Qty: 14 0RF levofloxacin 500 MG tablet 500 mg PO DAILY Qty: 5 0RF Primary Care Provider: Aleksandar Soto Referrals: Aleksandar Soto MD [Primary Care Provider] - Print Language: Setswana Disposition Disposition: Acute Care Hospital
[2024-07-02] MEDS: Ondansetron 4 MG/2 ML Vial IV (05:53)
[2024-07-02] MEDS: fentaNYL 100 MCG/2 ML Ampul 50 MCG IV (05:53)
[2024-07-02 05:54] LABS: Hemoglobin 9.6 g/dL (12.0-15.0); Mean Corp Hgb Conc 33.1 g/dL (32-36); Mean Corpuscular Hgb 33.3 pg (27.0-32.0); Mean Corpuscular Volume 100.7 fL (81-99); Platelet Count 345 K/mm3 (150-450); RBC Distribution Width CV 13.4 % (11.6-14.6); RBC Distribution Width SD 49.8 fl (35.1-43.9); Red Blood Count 2.88 M/mm3 (4.2-5.4); White Blood Count 16.1 K/mm3 (4.4-11.0)
[2024-07-02 05:55] LABS: Absolute Lymphocyte Count 2.97 X10^3/uL (0.83-4.51); Absolute Neutrophil Count 11.5 X10^3/uL (2.0-7.7); Basophil# 0.08 X10^3/uL; Basophil% 0.5 % (0-1); Eosinophil# 0.07 X10^3/uL; Eosinophils% 0.4 % (0-5); Lymphocyte # 2.97 X10^3/ul (0.83-4.51); Lymphocyte % 18.5 % (19-41); Mean Platelet Vol. 9.5 fl (6.2-12.0); Monocyte# 1.34 X10^3/uL; Monocyte% 8.3 % (0-10); NRBC Flagged by Analyzer 0 % (0-5); Neutrophil # 11.52 X10^3/uL (2.7-7.7); Neutrophil % 71.9 % (47-70)
[2024-07-02 06:13] LABS: Anion Gap 13 (5-15); BUN 15 mg/dL (4-19); BUN/Creat Ratio 14.6 RATIO (10-20); Calcium,Total 9.1 mg/dL (7.6-11.0); Carbon Dioxide 22.7 mmol/L (21.0-32.0); Chloride 99 mmol/L (98-108); Creatinine, Serum 1.03 mg/dL (0.70-1.20); EST Glomerular Filtration Rate 62 (>60); Glucose 157 mg/dL (70-99); Potassium 3.5 mmol/L (3.3-5.1); Sodium Level 134 mmol/L (133-145)
[2024-07-02 07:15] LABS: Bacteria 0 SEEN /hpf (None Seen); Mucous, Urine 0 SEEN /hpf (<or=2+)
[2024-07-02 07:21] LABS: Glucose, Dipstick Normal (Normal); Ketone-Dipstick Negative (Negative); Leukocyte Esterase-Dipstick 100 /ul (Negative); Nitrite-Dipstick Negative (Negative); Occult Blood-Urine 250 /ul (Negative); Protein-Dipstick 100 mg/dl (Negative); Specific Gravity, Urine 1.005 (1.002-1.030); Urine Bilirubin Dipstick Negative (Negative); Urine Clarity Clear (Clear); Urine Urobilinogen Normal (Normal)
[2024-07-02 07:23] LABS: Color, Urine SEE COMMENT BELOW (Yellow)
[2024-07-02 07:27] LABS: Red Blood Cells-Urine > 100 SEEN /hpf (0-5); Squamous Epithelial Cells - UA 0-5 SEEN /hpf (5-10); White Blood Cells 0-5 SEEN /hpf (0-5)
[2024-07-02] MEDS: Morphine 4 MG/ML Syringe IV (09:38)
== END 2024-07-02 12:10 | disposition short-term general hospital (02) ==
PROVIDERS: Emergency Provider Emergency Medicine; PCP Internal Medicine; Visit Provider Emergency Medicine
DX: R10.32 Left lower quadrant pain (principal); I48.91 Unspecified atrial fibrillation; E11.9 Type 2 diabetes mellitus without complications; Z79.01 Long term (current) use of anticoagulants; Z87.891 Personal history of nicotine dependence; R11.2 Nausea with vomiting, unspecified; Z79.84 Long term (current) use of oral hypoglycemic drugs; Z96.653 Presence of artificial knee joint, bilateral; Z96.619 Presence of unspecified artificial shoulder joint; N99.820 Postprocedural hemorrhage of a genitourinary system organ or structure following a genitourinary system procedure; T14.8XXA Other injury of unspecified body region, initial encounter
CPT/HCPCS: 74177; 80048; 81001; 85025; 96374; 96375; 99284; Q9967; A4216; J2405